=== PATIENT | female | born 1980 | race Caucasian/White ===

== ENCOUNTER 2019-01-06 10:39 | Outpatient (REF) | payer BC, SELFPAY ==
--- NOTE | 2019-01-06 09:45 | PAPFT_PTH ---
PATIENT: Radha Ibarra LOC: [facility] U#:[id number] AGE/SX: 38/F ROOM: RE01/06/[address]: GENOVEVA Westbrook : 1980 BED: DIS: 01/06/2019 SPEC #: [id number] RECD: 01/06/19 12:56 STATUS: EMANUEL REQ #: [id number] EROS: 01/06/19 09:[address]: Ximena Ross DEPT: [facility] Cytology RECD BY: Treasure Edwards ENTERED: 01/06/19 12:56 SP TYPE: PAPFT FER DR: Bolivar Berkowitz, Tissues: 1 - CX/ENDOCX FOR PAP SMEARS Procedures: PAP THIN PREP/UVM Screening HPV DNA PROBE Comments: [id number]
[2019-01-07 15:03] LABS: Chlamydia Result Negative; GC Result Negative; Specimen Description CERVIX
== END 2019-01-06 10:59 ==
LOC: LBN 10:39
PROVIDERS: PCP Emergency Medicine; Visit Provider Nurse Practitioner Family
DX: Z11.3 Encounter for screening for infections with a predominantly sexual mode of transmission (principal); Z12.4 Encounter for screening for malignant neoplasm of cervix; Z11.51 Encounter for screening for human papillomavirus (HPV)
CPT/HCPCS: 87491; 87591; 88142; 87624

== ENCOUNTER 2019-01-20 00:24 | Outpatient (CLI) | payer BC, SELFPAY ==
--- NOTE | 2019-01-20 15:40 | DI.MAMMO_ITS ---
SYMPTOM/DIAGNOSIS: SCREENING Z12.31 MAMMOGRAM: Mammograms were interpreted according to the usual protocol including computer analysis with CAD system, tomosynthesis and C view imaging. This is a baseline examination. Breast density category B. No suspicious masses or microcalcifications are seen. There is no definite evidence of malignancy. IMPRESSION: Category 1, Negative mammogram. Routine screening is recommended. Breast density category B. MQSA ASSESSMENT OF FINDINGS: Negative. Category 1. Patient will receive a letter notifying them of these results. BI-RADS category B. There are scattered areas of fibroglandular density.
== END 2019-01-20 00:44 ==
PROVIDERS: PCP Emergency Medicine; Visit Provider Nurse Practitioner Family
DX: Z12.31 Encounter for screening mammogram for malignant neoplasm of breast (principal)
CPT/HCPCS: 77063; 77067

== ENCOUNTER 2020-04-09 14:16 | Outpatient (REF) | payer BC, SELFPAY | END 2020-04-09 14:36 | LOC: LBN 14:16 | PROVIDERS: PCP Emergency Medicine; Visit Provider Nurse Practitioner Family | DX: J02.9 Acute pharyngitis, unspecified (principal) | CPT/HCPCS: 87070 ==

== ENCOUNTER 2020-10-10 18:06 | Outpatient (REF) | payer BC, SELFPAY ==
[2020-10-10 14:18] LABS: ESR 14 mm//hr (0-20)
[2020-10-10 14:23] LABS: Calculated LDL 170 mg/dL (<100); Cholesterol 256 mg/dL (<200); HDL Cholesterol 68 mg/dL (40-60); TSH 1.91 uIU/mL (0.36-3.74); Triglyceride 92 mg/dL (<150)
[2020-10-10 14:34] LABS: C-Reactive Protein 0.06 mg/dL (0.0-0.3)
[2020-10-10 15:07] LABS: Hemoglobin A1C 5.3 % (<5.7)
== END 2020-10-10 18:07 | disposition home or self-care (01) ==
LOC: LBN 18:06
PROVIDERS: PCP Emergency Medicine; Visit Provider Emergency Medicine
DX: E11.9 Type 2 diabetes mellitus without complications (principal); R53.83 Other fatigue; E03.9 Hypothyroidism, unspecified
CPT/HCPCS: 80061; 85652; 83036; 84443; 86140

== ENCOUNTER 2022-01-03 10:59 | Outpatient (REF) | payer BC, SELFPAY ==
--- NOTE | 2022-01-03 10:15 | PAPFT_PTH ---
PATIENT: Radha Ibarra LOC: [facility] U#:[id number] AGE/SX: 41/F ROOM: RE01/03/[address]: GENOVEVA Westbrook : 1980 BED: DIS: 01/03/2022 SPEC #: [id number] RECD: 01/03/22 12:54 STATUS: EMANUEL REQ #: [id number] EROS: 01/03/22 10:[address]: Ximena Ross DEPT: [facility] Cytology RECD BY: Treasure Edwards ENTERED: 01/03/22 12:57 SP TYPE: PAPFT OTHR DR: Caron Smith APRN Tissues: 1 - CX/ENDOCX FOR PAP SMEARS Procedures: PAP THIN PREP/UVM Screening HPV DNA PROBE Comments: [id number]
== END 2022-01-03 11:00 | disposition home or self-care (01) ==
LOC: LBN 10:59
PROVIDERS: Visit Provider Nurse Practitioner Family
DX: Z12.4 Encounter for screening for malignant neoplasm of cervix (principal); Z11.51 Encounter for screening for human papillomavirus (HPV); R87.810 Cervical high risk human papillomavirus (HPV) DNA test positive
CPT/HCPCS: 88142; 87624

== ENCOUNTER 2022-01-10 02:11 | Outpatient (CLI) | payer BC, SELFPAY ==
[2022-01-10 08:13] LABS: Calculated LDL 146 mg/dL (<100); Cholesterol 227 mg/dL (<200); HDL Cholesterol 65 mg/dL (40-60); Triglyceride 84 mg/dL (<150)
== END 2022-01-10 02:12 | disposition home or self-care (01) ==
LOC: LBO 02:11
PROVIDERS: PCP Nurse Practitioner Family; Visit Provider Emergency Medicine
DX: E78.5 Hyperlipidemia, unspecified (principal)
CPT/HCPCS: 36415; 80061

== ENCOUNTER → 2022-01-24 00:15 | Outpatient (CLI) | payer BC, SELFPAY ==
--- NOTE | 2022-01-24 12:45 | DI.MAMMO_ITS ---
Exam(s) MAMMO SCREENING EXAM: MAMMO SCREENING CLINICAL HISTORY: screening TECHNIQUE: Bilateral full field digital CC and MLO mammographic images were obtained with 3D tomosyn thesis and utilizing computer aided detection (CAD). COMPARISON: Available for comparison. FINDINGS: Masses/Architectural Distortion: None seen. Microcalcifications: No suspicious pleomorphic-type are seen. Skin Thickening/Nipple Retraction: None. IMPRESSION: 1. No significant interval change with no specific features of malignancy noted. 2. Unless there is more urgent need, screening mammography is recommended, as per [employer] guidelines. BI-RADS Category 1 - Negative Breast Density - Category B - Scattered areas of fibroglandular density Breast density category C or D implies that the patient has dense breast tissue. Dense breast tissue is very common and is not abnormal but dense breast tissue can make it harder to find cancer on a ma mmogram. Also, dense breast tissue may increase their breast cancer risk. This information about the result of the mammogram report was provided to the patient to raise their awareness. Use this report when you speak with the patient about their risks for breast cancer, which includes their family hist ory. At that time, you may recommend for more screening tests (Ultrasound or MRI) as they might be us eful based on their risk. A negative radiographic report should not delay biopsy if a dominant or clinically suspicious mass is present. Up to ten percent of cancers are not identified on mammography. A negative report may reinforce clinical impression. Adenosis and dense breasts may obscure an underlying neoplasm. False positive reports average 6 to 10%. Patient will receive a letter notifying them of these results.
== END ==
PROVIDERS: PCP Nurse Practitioner Family; Visit Provider Nurse Practitioner Family
DX: Z12.31 Encounter for screening mammogram for malignant neoplasm of breast (principal)
CPT/HCPCS: 77063; 77067

== ENCOUNTER 2022-11-14 18:46 | Outpatient (REF) | payer BC, SELFPAY | END 2022-11-14 18:47 | disposition home or self-care (01) | LOC: LBN 18:46 | PROVIDERS: PCP Nurse Practitioner Family; Visit Provider Physician Assistant Medical | DX: J02.9 Acute pharyngitis, unspecified (principal) | CPT/HCPCS: 87070 ==

== ENCOUNTER 2023-01-09 02:00 | Outpatient (CLI) | payer BC, SELFPAY ==
[2023-01-09 13:30] LABS: Anion Gap 9.8 mmol/L (3-11); BUN 14 mg/dL (7-18); CO2 26.2 mmol/L (21.0-32.0); CREATININE 0.9 mg/dL (0.55-1.02); Calcium 9.1 mg/dL (8.5-10.1); Calculated LDL 150 mg/dL (<100); Chloride 103 mmol/L (98-107); Cholesterol 230 mg/dL (<200); Estimated GFR 80.84 (mL/min/1.73m2); Glucose 102 mg/dL (74-106); HDL Cholesterol 65 mg/dL (40-60); Potassium 4.2 mmol/L (3.5-5.1); Sodium 139 mmol/L (136-145); Triglyceride 77 mg/dL (<150)
== END 2023-01-09 02:01 | disposition home or self-care (01) ==
LOC: LBO 02:00
PROVIDERS: PCP Nurse Practitioner Family; Visit Provider Nurse Practitioner Family
DX: Z00.00 Encounter for general adult medical examination without abnormal findings (principal); E78.5 Hyperlipidemia, unspecified
CPT/HCPCS: 36415; 80048; 80061

== ENCOUNTER 2023-01-27 02:01 | Outpatient (CLI) | payer BC, SELFPAY ==
--- NOTE | 2023-01-27 07:45 | DI.MAMMO_ITS ---
Exam(s) MAMMO SCREENING EXAM: MAMMO SCREENING CLINICAL HISTORY: screening,z12.39 TECHNIQUE: Bilateral full field digital CC and MLO mammographic images were obtained with 3D tomosyn thesis and utilizing computer aided detection (CAD). COMPARISON: Available for comparison. FINDINGS: Masses/Architectural Distortion: None seen. Microcalcifications: No suspicious pleomorphic-type are seen. Skin Thickening/Nipple Retraction: None. IMPRESSION: 1. No significant interval change with no specific features of malignancy noted. 2. Unless there is more urgent need, screening mammography is recommended, as per [employer] guidelines. BI-RADS Category 1 - Negative Breast Density - Category B - Scattered areas of fibroglandular density Breast density category C or D implies that the patient has dense breast tissue. Dense breast tissue is very common and is not abnormal but dense breast tissue can make it harder to find cancer on a ma mmogram. Also, dense breast tissue may increase their breast cancer risk. This information about the result of the mammogram report was provided to the patient to raise their awareness. Use this report when you speak with the patient about their risks for breast cancer, which includes their family hist ory. At that time, you may recommend for more screening tests (Ultrasound or MRI) as they might be us eful based on their risk. A negative radiographic report should not delay biopsy if a dominant or clinically suspicious mass is present. Up to ten percent of cancers are not identified on mammography. A negative report may reinforce clinical impression. Adenosis and dense breasts may obscure an underlying neoplasm. False positive reports average 6 to 10%. Patient will receive a letter notifying them of these results.
== END 2023-04-08 14:15 ==
LOC: DI 02:01
PROVIDERS: PCP Nurse Practitioner Family; Visit Provider Nurse Practitioner Family
DX: Z12.31 Encounter for screening mammogram for malignant neoplasm of breast (principal)
CPT/HCPCS: 77063; 77067

== ENCOUNTER 2023-01-27 11:54 | Outpatient (REF) | payer BC, SELFPAY ==
--- NOTE | 2023-01-27 11:30 | PAPFT_PTH ---
PATIENT: Radha Ibarra LOC: [facility] U#:[id number] AGE/SX: 42/F ROOM: RE01/27/[address]: Lanie Marrero MD : 1980 BED: DIS: 01/27/2023 SPEC #: [id number] RECD: 01/27/23 12:59 STATUS: SHARONEmeka RECharles #: [id number] EROS: 01/27/23 11:[address]: Lanie Marrero DEPT: [facility] Cytology RECD BY: Treasure Edwards ENTERED: 01/27/23 12:59 SP TYPE: PAPFT FER DR: Cristina Franco, GENOVEVA Tissues: 1 - CX/ENDOCX FOR PAP SMEARS Procedures: PAP THIN PREP/UVM Screening HPV DNA PROBE Comments: [id number]
== END 2023-01-27 11:55 | disposition home or self-care (01) ==
LOC: LBN 11:54
PROVIDERS: PCP Nurse Practitioner Family; Visit Provider Obstetrics & Gynecology
DX: Z12.4 Encounter for screening for malignant neoplasm of cervix (principal)
CPT/HCPCS: 88142; 87624

== ENCOUNTER 2024-02-02 11:21 | Outpatient (REF) | payer BC, SELFPAY ==
--- NOTE | 2024-02-02 10:45 | PAPFT_PTH ---
PATIENT: Radha Ibarra LOC: [facility] U#:[id number] AGE/SX: 43/F ROOM: RE02/02/[address]: Lanie Marrero MD : 1980 BED: DIS: 02/02/2024 SPEC #: [id number] RECD: 02/02/24 12:44 STATUS: EMANUEL RECharles #: [id number] EROS: 02/02/24 10:[address]: Lanie Marrero [facility] Cytology RECD BY: Treasure Edwards ENTERED: 02/02/24 12:44 SP TYPE: PAPFT FER DR: Cristina Franco, COMPRESSOR MECHANIC BUS Tissues: 1 - CX/ENDOCX FOR PAP SMEARS Procedures: PAP THIN PREP/UVM Screening HPV DNA PROBE Comments: [id number] (HPV 16 & 18/45)
== END 2024-02-02 11:22 | disposition home or self-care (01) ==
LOC: LBN 11:21
PROVIDERS: PCP Nurse Practitioner Family; Visit Provider Obstetrics & Gynecology
DX: Z12.4 Encounter for screening for malignant neoplasm of cervix (principal)
CPT/HCPCS: 88142; 87624

== ENCOUNTER 2024-05-26 09:47 | Outpatient (CLI) | payer BC, SELFPAY ==
--- NOTE | 2024-05-26 16:13 | DI.MAMMO_ITS ---
Exam(s) MAMMO SCREENING EXAM: MAMMO SCREENING CLINICAL HISTORY: screening,Z12.39 TECHNIQUE: Mammograms were interpreted according to the usual protocol including computer analysis w [employer] CAD system, tomosynthesis and C-view imaging. COMPARISON: 2018 through 2022 FINDINGS: The breasts are composed of scattered fibroglandular densities, Breast Density category B. No suspicious masses or suspicious microcalcifications are seen. No skin thickening or abnormal axillary lymph nodes are seen. There has been no significant change from prior exams. IMPRESSION: BI-RADS Category 1, Negative mammogram Yearly screening mammography is recommended. Breast Density - Category B, scattered fibroglandular densities. A negative radiographic report should not delay biopsy if a dominant or clinically suspicious mass is present. Up to ten percent of cancers are not identified on mammography. A negative report may reinforce clinical impression. Adenosis and dense breasts may obscure an underlying neoplasm. False positive reports average 6 to 10%. Patient will receive a letter notifying them of these results.
== END 2024-05-26 10:07 ==
LOC: DI 09:49
PROVIDERS: PCP Nurse Practitioner Family; Visit Provider Nurse Practitioner Family
DX: Z12.31 Encounter for screening mammogram for malignant neoplasm of breast (principal); R92.323 Mammographic fibroglandular density, bilateral breasts
CPT/HCPCS: 77063; 77067

== ENCOUNTER 2024-06-08 04:31 | Outpatient (CLI) | payer BC, SELFPAY ==
[2024-06-08 07:22] LABS: HCT 42.4 % (36.0-46.0); HGB 14.4 g/dL (11.2-15.7); MCH 31.9 pg (27.0-33.0); MCV 94 fL (80-95); MPV 10.6 fL (8.0-11.0); Platelet Count 216 10^3/uL (130-400); RBC 4.51 10^6/uL (3.93-5.22); RDW 11.9 % (11.7-14.6); RDW-SD 41.4 fL; WBC 7.12 10^3/uL (4.4-10.8)
[2024-06-08 07:47] LABS: Hemoglobin A1C 5.5 % (<5.7)
[2024-06-08 07:52] LABS: Calculated LDL 167 mg/dL (<100); Cholesterol 251 mg/dL (<200); HDL Cholesterol 75 mg/dL (40-60); TSH (W/Ref FT4) 2.12 uIU/mL (0.36-3.74); Triglyceride 47 mg/dL (<150)
[2024-06-08 20:54] LABS: HBs Antibody, Quant 18.6 mIU/mL (See Note); Hep B Surface Ab Positive (See Note); Hepatitis B Core Antibody Negative (Negative); Hepatitis B Surface Antigen Negative (Negative)
[2024-06-08 20:55] LABS: HIV-1/2 Ag & Ab Screen Negative (Negative)
[2024-06-08 21:00] LABS: Hepatitis C Ab w Rflx HCV PCR Negative (Negative)
== END 2024-06-08 04:32 | disposition home or self-care (01) ==
LOC: LBO 04:31
PROVIDERS: PCP Nurse Practitioner Family; Visit Provider Nurse Practitioner Family
DX: Z11.59 Encounter for screening for other viral diseases (principal); Z00.00 Encounter for general adult medical examination without abnormal findings; Z11.4 Encounter for screening for human immunodeficiency virus [HIV]
CPT/HCPCS: 36415; 80061; 85027; 86704; 86706; 86803; 87340; 87389; 83036; 84443

== ENCOUNTER 2024-06-17 10:58 | Day surgery (SDC) | payer BC, SELFPAY ==
--- NOTE | 2024-06-16 22:27 | COLE_ITS ---
Date of service: 06/17/24 Time of Service: 13:13 Colonoscopy Report Date of procedure: 06/17/24 Pre-op diagnosis general: X 1 family member with colorectal cancer. 60's Post-op diagnosis procedure note: same Surgeon: Lashaun Soares Anesthesia Type: General:No Airway Estimated blood loss (mL): 0 Pathology: none sent Complications: None Disposition: same day Prep: Miralax/Dulcolax Retraction Time: 16 Procedure Description: After informed consent was obtained, explaining risks of the procedure, including but not limits to: bleeding, infections, complications of anesthesia, perforations (which may require antibiotics and /or surgery and stay in the hospital), and abdominal pain/cramping. The patient was taken to the procedure room and placed in a left decubitous position. Monitors were applied and a time out was done. The patients name, date of , procedure, allergies to medications and metal in their body was reviewed. The patient was then sedated. Once sedated and comfortable a rectal exam was done. External exam was normal- very minior ext. hemorrhoids. Internal exam revealed a normal sphincter tone and no palpable masses. The previously lubricated Olympus scope was then introduced (see RN notes for scope number) and retrofelexed. No internal hemorrhoids were identified. The scope was then advanced to the cecum without difficulty. The TI and appendiceal orifice were identified. The scope was then slowly retracted over 16 minutes back into the rectum. Polyps: none Diverticula: none The mucosa is pink and healthy w/ a normal vascular pattern. The scope was removed, and the patient was woken up and taken back to Same day surgery in stable condition. The patient tolerated the procedure well and there were no immediate complications. Follow up: The patient should follow up in 10 years, unless they develop changes in bowel habits or other new gastrointestinal complaints. [place] Bowel Prep [place] Bowel Prep Right Colon: 3 Left Colon: 3 Transverse Colon: 3 Total Score: 9
--- NOTE | 2024-06-16 22:29 | PDOC.DSDIS_ITS ---
Date of service: 06/17/24 Discharge Plan Disposition Patient Disposition: Home Condition: Good Discharge Details Reason For Visit: Colon cancer screening Attending Provider: Lashaun Soares Primary Care Provider: Cristina Franco Home Meds and New Rx's Prescriptions: Continued cholecalciferol (vitamin D3) 100 mcg (4,000 unit) capsule 100 mcg PO DAILY omega-3 fatty acids 1,000 mg capsule 1,000 mg PO DAILY magnesium 200 mg tablet 200 mg PO DAILY multivitamin Tablet 1 tab PO DAILY Probiotic 3 billion cell capsule 3,000 mmu cells PO DAILY Rx Instructions: administer with a meal Discontinued bisacodyl [Dulcolax (bisacodyl)] 5 mg tablet,delayed release (DR/EC) 5 mg PO ONCE Qty: 4 0RF Rx Instructions: Take per colonoscopy instructions provided by ordering providers office polyethylene glycol 3350 17 gram/dose powder 17 g PO ONCE Qty: 238 0RF Rx Instructions: Take per colonoscopy instructions provided by ordering providers office Discharge Instructions Additional Instructions: DSU Colonoscopy Post- Op Instructions Instructions for Everyone who is given Anesthesia: For your safety, please do the following for the next twenty-four (24) hours: *Do Not operate a motor vehicle (car, truck, motorcycle, etc.) *Do Not drink alcoholic beverages or use any recreational drugs for the first 24 hours or while taking pain medications. The medications in your body may have a reaction that can be dangerous. *Do Not make any important decisions or sign any important papers. Findings: normal Follow up: 10 yrs 1. No lifting over 20 pounds or strenuous activity for the first 24 hours after your procedure. After 24 hours there are no restrictions on your activity but yo u may feel fatigued for a few days. 2. After you arrive home you may have a light meal and return to your normal diet as you can tolerate it without feeling sick to your stomach. 3. You may have a bloated, gaseous feeling in your belly (abdomen) after a colonoscopy. Passing gas and belching will help. Walking or lying down on your left side with your knees flexed may relieve the discomfort. Call the office at [phone] (Office) or [phone] (Hospital) right away if you notice any of the following: a.Vomiting of blood or ?coffee ground stools?. b.Rectal bleeding 1Tbsp, blood clots or continuous bleeding. c.Severe belly (abdominal) pain. d.A hard distended belly (abdomen) and an inability to pass gas. 4. Please don?t expect to have a normal BM (bowel movement) for 2-3 days after your procedure. 5. If there are questions regarding the findings of your procedure, please contact your doctor 6. If you are unable to contact your doctor with a problem, contact the hospital at [phone]. 7. Continue all your regular medications unless directed otherwise. I understand the above instructions and have no questions. Signature of Patient or Adult Escort Name of Responsible Adult Escort Signature of Nurse Date/Time Activity:: See above Diet:: See above Discharge Orders Discharge Orders: Discharge Order (Routine); Ordered 06/17/24 Ordered By: Lashaun Soares DS: Diagnosis Discharge Diagnosis (1) Screening for malignant neoplasm of colon performed: Status: Acute Asessment and Plan: The patient is seen and examined after their colonoscopy.? The patient has been able to pass gas.? They are not having abdominal pain.? They have been able to tolerate liquids and a snack.? They do not have any nausea or vomiting.? They are not having any chest pain or shortness of breath.??? They are not having any rectal bleeding. Their vital signs have been stable-see nursing notes. We discussed findings during their colonoscopy, and any biopsies that were done/polyps that were removed. The patient will be sent a letter with any biopsy results, and when to repeat the colonoscopy.-see discharge instructions. Patient was given explicit instructions to follow-up regarding colonoscopy-refer to discharge instructions.? We reviewed resumption of medications. Patient verbalized understanding and discharged in stable and satisfactory condition- See nursing notes.
[2024-06-17 11:23] VITALS: BP 120/80; PULSE 63; RESP 16; TEMP 36.4; O2SAT 99
[2024-06-17] MEDS: Lactated Ringers 1,000 ML 80 ML IV (12:01)
--- NOTE | 2024-06-17 12:09 | W.ANESPRE ---
General Info Date of Service Date Performed: 06/17/24 Height: 5 ft 5 in Weight: 69.4 kg Body Mass Index (BMI): 25.4 Surgical Procedure: Operation Date: 06/17/24 11:35 Proposed Procedure Side Surgeon luli Soares, DO Meds Allergies and Home Medications Allergies Allergy/AdvReac Type Severity Reaction Status Date / Time Sulfa (Sulfonamide Allergy Mild Hives, Verified 06/17/24 11:39 Antibiotics) Vomiting Home Medication ?Medication ?Instructions ?Recorded cholecalciferol (vitamin D3) 100 100 mcg PO DAILY 12/22/19 mcg (4,000 unit) capsule omega-3 fatty acids 1,000 mg 1,000 mg PO DAILY 12/22/19 capsule lactobacillus combination no.4 3 3,000 mmu cells PO DAILY 01/27/23 billion cell capsule (Probiotic) magnesium 200 mg tablet 200 mg PO DAILY 01/27/23 multivitamin 1 tab PO DAILY 01/27/23 Current Visit Medications: Current Medications Generic Name Dose Route Start Last Admin Trade Name Freq PRN Reason Stop Dose Admin Hyoscyamine Sulfate 0.125 mg 06/17/24 04:41 Hyoscyamine 0.125 Mg Sl/Oral/Chew SL 07/17/24 04:40 DIRECTED PRN Ringer's Solution 1,000 mls @ 80 mls/hr 06/17/24 10:30 06/17/24 12:01 IV 07/17/24 10:29 80 mls/hr INFUSION GEOFF Administration IV Miscellaneous Supplies 1 each 06/17/24 06:00 Iv Access IV 06/17/24 23:59 DIRECTED GEOFF Ondansetron HCl 4 mg 06/17/24 04:41 Ondansetron 4 Mg/2 Ml Vial IVP 07/17/24 04:40 Q4H PRN PRN Nausea / Vomiting Sodium Chloride 0 ml 06/17/24 06:00 Normal Saline Flush 10 Ml Syr IV 06/17/24 23:59 PRN PRN Sodium Chloride 0 ml 06/17/24 06:00 Normal Saline 10 Ml Vial IJ 06/17/24 23:59 DIRECTED PRN Sterile Water 0 ml 06/17/24 06:00 Water,Injection,Sterile 10 Ml Vial IJ 06/17/24 23:59 DIRECTED PRN PFSH Active Problems Active Problems: Problem Status Onset Code Screening for malignant neoplasm of colon performed Acute Z12.11 Hyperlipidemia Chronic E78.5 Medical History Medical History Abnormal Pap smear of cervix December 2021: Normal cytology/HPV+ - first abnormal pap Repeat Jan 2023: Medical History Comments:: per pt. states My family just doesn't wake up from it well, combative wake up. Surgical History Surgical History S/P tonsillectomy and adenoidectomy Tobacco Smoking/Tobacco Use Status: Former Tobacco Use Second hand exposure: Yes Alcohol Alcohol Intake: current Alcohol intake frequency: a few times a week Alcohol type: wine Substance Use Substance use: Never Substance use type: does not use Prental History History 3 Para 2 Hx # Term Pregnancies Multiple births Hx # Pregnancies Ectopic pregnancies AB induced Hx Number of Living Children 2 AB spontaneous 1 Vital Signs and Lab Results Vital Signs Most Recent Vital Signs in EMR: Most Recent Vital Signs Temp Pulse Resp BP Pulse Ox 36.4 C L 63 16 120/80 99 06/17/24 11:23 06/17/24 11:23 06/17/24 11:23 06/17/24 11:23 06/17/24 11:23 Lab Results Blood Type / Crossmatch: No Data to Display Complete Blood Count: White Blood Count 7.12 10^3/uL (4.4-10.8) 06/08/24 07:16 Red Blood Count 4.51 10^6/uL (3.93-5.22) 06/08/24 07:16 Hemoglobin 14.4 g/dL (11.2-15.7) 06/08/24 07:16 Hematocrit 42.4 % (36.0-46.0) 06/08/24 07:16 Platelet Count 216 10^3/uL (130-400) 06/08/24 07:16 Complete Metabolic Panel: Hemoglobin A1c 5.5 % (<5.7) 06/08/24 07:16 Liver Function Panel: No Data to Display Coagulation Panel: No Data to Display Cardiac Panel: No Data to Display Arterial Blood Gas: No Data to Display Venous Blood Gas: No Data to Display Pancreas Panel: No Data to Display Thyroid Panel: Thyroid Stimulating Hormone (TSH) 2.12 uIU/mL (0.36-3.74) 06/08/24 07:16 Infectious Disease: HIV (1&2) Ag and Ab, 4th Generation Negative (Negative) 06/08/24 07:16 Hepatitis B Surface Antigen Negative (Negative) 06/08/24 07:16 Hepatitis C Antibody Negative (Negative) 06/08/24 07:16 Blood Cultures: No Data to Display Toxicology Panel: No Data to Display Panel: No Data to Display Anesthesia Assessment and Plan Anesthesia History Personal History: No History of Anesthesia Complications Family History: No Family History of Anesthesia Complications Exercise Tolerance Exercise Tolerance: Metabolic Equivalents>4 Pertinent Negatives Pertinent Negatives: No Symptoms of GERD Cardiac & Pulmonary Exam Cardiac Exam: Normal S1/S2 Heart Sounds Pulmonary Exam: Clear Bilateral Breath Sounds Implantable Cardiac Device Does patient have a Pacemaker or an ICD?: No Airway Exam Known Difficult Airway: No Mallampati Class: 2 Mouth Opening: Normal (> 3cm) Thyromental Distance: Greater than 3 cm Neck Range of Motion: Full ROM Neck Circumference: Normal Teeth Condition: Normal Dentition ASA Classification ASA Score: ASA 2 Emergency Case?: No NPO Status NPO Status: NPO Clears >2 hours, Solids >8 hours Status Status: Negative HCG Anesthesia Plan Resuscitation Status: Full Code Anesthesia Technique: General Anesthesia Airway Planned: Natural Airway Monitors Used: Standard Monitors
[2024-06-17 12:11] VITALS: BMI 25.4
[2024-06-17 13:05] VITALS: BP 111/72; PULSE 76; RESP 16; TEMP 36.4; O2SAT 98
--- NOTE | 2024-06-17 13:12 | W.ANESPOSTOP ---
Postoperative Evaluation Date, Time and Location Date Performed: 06/17/24 Time Performed: 13:12 Patient Location: Day Surgery Unit Vital Signs Most Recent Imported Vital Signs: Most Recent Vital Signs Temp Pulse Resp BP Pulse Ox 36.4 C L 76 16 111/72 98 06/17/24 13:05 06/17/24 13:05 06/17/24 13:05 06/17/24 13:05 06/17/24 13:05 Pain Score Most Recent Pain Score: Most Recent Pain Score Pain Level 0 06/17/24 13:05 Assessment Mental Status: Awake (Alert & Oriented to Patient Baseline) Airway and Respiratory Function: Patent airway with normal (patient baseline) respiratory exam Cardiovascular Function: Hemodynamically Stable Hydration Status: Adequately Hydrated Nausea & Vomiting: No Nausea or Vomiting Pain: Pt. Denies Any Pain Peripheral Nerve Block: Patient did not receive a nerve block
[2024-06-17 13:33] VITALS: BP 106/79; PULSE 61; RESP 16; TEMP 37; O2SAT 98
== END 2024-06-17 13:44 | disposition home or self-care (01) ==
LOC: SUR 10:59
PROVIDERS: PCP Nurse Practitioner Family; Visit Provider Surgery
PROC: 0DJD8ZZ Inspection of Lower Intestinal Tract, Via Natural or Artificial Opening Endoscopic (ICD-10-PCS; CPT 45378; principal; 2024-06-17 11:30)
DX: Z12.11 Encounter for screening for malignant neoplasm of colon (principal); Z80.0 Family history of malignant neoplasm of digestive organs
CPT/HCPCS: 45378; J2704

== ENCOUNTER 2025-02-03 09:42 | Outpatient (REF) | payer BC, SELFPAY ==
--- NOTE | 2025-02-03 09:00 | PAPFT_PTH ---
PATIENT: Radha Ibarra LOC: [facility] U#:[id number] AGE/SX: 44/F ROOM: RE02/03/[address]: Lanie Marrero MD : 1980 BED: DIS: 02/03/2025 SPEC #: [id number] RECD: 02/03/25 12:58 STATUS: EMANUEL RECharles #: [id number] EROS: 02/03/25 09:[address]: Lanie Marrero DEPT: [facility] Cytology RECD BY: Treasure Edwards ENTERED: 02/03/25 12:59 SP TYPE: PAPFT FER DR: Cristina Franco, DIGITAL ASSET COORDINATOR Tissues: 1 - CX/ENDOCX FOR PAP SMEARS Procedures: PAP THIN PREP/UVM Screening HPV DNA PROBE Comments: [id number] (HPV 16 & 18/45)
== END 2025-02-03 09:43 | disposition home or self-care (01) ==
LOC: LBN 09:42
PROVIDERS: PCP Nurse Practitioner Family; Visit Provider Obstetrics & Gynecology
DX: Z12.4 Encounter for screening for malignant neoplasm of cervix (principal)
CPT/HCPCS: 88142; 87624

== ENCOUNTER → 2025-06-12 00:53 | Outpatient (CLI) | payer BC, SELFPAY ==
--- NOTE | 2025-06-12 07:30 | DI.MAMMO_ITS ---
Exam(s) MAMMO SCREENING EXAM: MAMMO SCREENING CLINICAL HISTORY: screening,Z12.39 TECHNIQUE: Bilateral full field digital CC and MLO mammographic images were obtained with 3D tomosynthesis and utilizing computer aided detection (CAD). COMPARISON: Comparison is made with prior examinations. FINDINGS: Masses/Architectural Distortion: No suspicious masses or areas of architectural distortion are present. Microcalcifications: No suspicious pleomorphic-type are seen. Skin Thickening/Nipple Retraction: None. IMPRESSION: 1. No significant interval change with no specific features of malignancy noted. 2. Unless there is more urgent need, screening mammography is recommended, as per [employer] guidelines. BI-RADS Category 1 - Negative Breast Density - Category B - There are scattered areas of fibroglandular density. Breast density Category C or D implies that the patient has dense breast tissue. Dense breast tissue can make it harder to find cancer on a mammogram. Dense breast tissue is also associated with an increased risk of breast cancer. This information about the result of the mammogram report was provided to the patient to raise their awareness. Use this report when you speak with the patient about their risks for breast cancer, which includes their family history. At that time, you may recommend additional screening tests (Ultrasound or MRI) as these tests may add significant information. A negative radiographic report should not delay biopsy if a dominant or clinically suspicious mass is present. Up to ten percent of cancers are not identified on mammography. A negative report may reinforce clinical impression. Adenosis and dense breasts may obscure an underlying neoplasm. False positive reports average 6 to 10%. Patient will receive a letter notifying them of these results.
== END ==
LOC: DI 00:53
PROVIDERS: PCP Nurse Practitioner Family; Visit Provider Nurse Practitioner Family
DX: Z12.31 Encounter for screening mammogram for malignant neoplasm of breast (principal)
CPT/HCPCS: 77063; 77067